=== PATIENT | male | born 1980 | race Caucasian/White ===

== ENCOUNTER 2020-05-01 19:03 | Emergency (ER) | payer OTHER, SELFPAY ==
--- NOTE | ~2020-05-01 | XR_ITS ---
XR ankle RT min 3V DATE: 05/01/2020 19:54 INDICATION: Fall. Pain and swelling of the lateral right ankle TECHNIQUE: 4 views COMPARISON: None FINDINGS: There is prominent anterolateral soft tissue swelling of the right ankle. No fracture or di slocation of the ankle or disruption of the ankle mortise is detected. IMPRESSION: Prominent anterolateral soft tissue swelling; no fracture or dislocation Reviewed, dictated and finalized at location A. IMPRESSION: Prominent anterolateral soft tissue swelling; no fracture or disloc ation
[2020-05-01 19:22] VITALS: BP 103/67; PULSE 114; RESP 19; TEMP 36.7; O2SAT 100
--- NOTE | 2020-05-01 19:54 | ED.GENADULT ---
HPI - General Adult General Chief complaint: Extremity Injury, Lower Stated complaint: R ankle pain Time Seen by Provider: 05/01/20 19:44 History of Present Illness HPI narrative: Patient is a 39 y/o male complaining or right ankle pain after he attempted to get up and fell around 1:00 PM. He state that his pain is sharp and rates it as 9/10. There is no pain radiation. Pain is worse with movement. He denies hitting head or passing out. He denies any neck pain, back pain, chest pain or abdominal pain. He admits that he drank last night. Related Data Home Medications Medication Instructions Recorded Confirmed No Home Medications 05/01/20 05/01/20 Allergies Allergy/AdvReac Type Severity Reaction Status Date / Time No Known Allergies Allergy Verified 05/01/20 19:43 Review of Systems Constitutional: Constitutional: Denies chills, Denies fever(s), Denies headache(s) and Denies weakness Eyes: Eyes: Denies blurry vision ENT: Denies headache(s) and Denies neck pain Cardiovascular: Cardiovascular: Denies chest pain and Denies dyspnea Respiratory: Respiratory: Denies cough and Denies dyspnea Gastrointestinal: Gastrointestinal: Denies abdominal pain, Denies diarrhea, Denies nausea and Denies vomiting Genitourinary: Genitourinary: Denies hematuria and Denies dysuria Musculoskeletal: Musculoskeletal: Denies back pain, Reports arthralgias (right ankle pain), Reports joint swelling (right ankle swelling) and Denies neck pain Neurologic: Denies headache(s) and Denies weakness PMFSH Family History Family History Other Diabetes mellitus Family history of alcoholism Family history of arthritis Family history of cardiovascular disease Hypertension Social History Social History Alcohol intake: current Gender identity (if verbalized by the patient): Male Exam Const: General: no acute distress and well developed Orientation/consciousness: oriented to person, oriented to place, oriented to time and patient oriented x3 HENMT: Head: normocephalic Ears: external ears normal General nose exam: Normal external nose present Eyes: General: appearance normal, both eyes and all related structures Conjunctivae: conjunctivae normal Neck: Neck: normal visual inspection and full ROM Chest: Chest palpation & inspection: normal inspection of the chest and no tenderness Resp: Effort & Inspection: normal respiratory effort Auscultation: clear to auscultation bilaterally Cardio: Rate: regular rate Rhythm: regular rhythm GI: GI Palp: No abdominal tenderness and Yes Soft to palpation Skin: General skin exam: normal color and turgor normal Neuro: General: oriented to person, oriented to place, oriented to time and patient oriented x3 Cognition (Neuro): normal cognition Extrem: General: normal to inspection and full ROM Right lower extremity: ankle Details: swelling (lateral malleolus) Details: laterally Psych: Appearance: grossly normal Mental Status: mental status grossly normal Affect: normal affect Course Vital Signs Vital signs: Vital Signs Temperature 36.7 C 05/01/20 19:22 Pulse Rate 114 H 05/01/20 19:22 Respiratory Rate 05/01/20 19:22 Blood Pressure 103/67 05/01/20 19:22 Pulse Oximetry 100 05/01/20 19:22 Temperature 36.7 C 05/01/20 19:22 Pulse Rate 114 H 05/01/20 19:22 Respiratory Rate 05/01/20 19:22 Blood Pressure 103/67 05/01/20 19:22 Pulse Oximetry 100 05/01/20 19:22 Medical Decision Making Vital Signs Vital Signs: Vital Signs Temperature 36.7 C 05/01/20 19:22 Pulse Rate 114 H 05/01/20 19:22 Respiratory Rate 05/01/20 19:22 Blood Pressure 103/67 05/01/20 19:22 Pulse Oximetry 100 05/01/20 19:22 Temperature 36.7 C 05/01/20 19:22 Pulse Rate 114 H 05/01/20 19:22 Respiratory Rate 05/01/20 19:22 Blood Pressure 103/6
--- NOTE | 2020-05-01 20:45 | PC.NURSE ---
Patient to nurses station reports that he is going to go out to make a phone call for a ride and that he will come back to room. Patient was told that he has not been discharged at this time and was re-educated that he was a fall risk. Patient reported that he understood and that he is still going to go out to make a phone call but will come back in.
--- NOTE | 2020-05-01 21:00 | PC.NURSE ---
Patient has not returned to his room. Intake nurse states that patient had left the ED waiting room and had not returned.
--- NOTE | 2020-05-01 21:20 | PC.NURSE ---
Patient has still not returned to his room. Patient has left the ED prior to being discharged.
== END 2020-05-01 21:20 | disposition home or self-care (01) ==
PROVIDERS: Emergency Provider Emergency Medicine
DX: S93.401A Sprain of unspecified ligament of right ankle, initial encounter (principal); W18.39XA Other fall on same level, initial encounter
CPT/HCPCS: 73610; 99283

== ENCOUNTER 2020-07-21 00:05 | Emergency (ER) | payer OTHER, SELFPAY ==
[2020-07-21] VITALS (15 sets, daily range): BP systolic 92–132; BP diastolic 71–96; PULSE 67–113; RESP 13–32; TEMP 36.4; O2SAT 90–100
--- NOTE | ~2020-07-21 | CT_ITS ---
EXAMINATION: CT brain wo con EXAM DATE: 07/21/2020 09:14 INDICATION: Left eye laceration. Syncope. TECHNIQUE: Spiral CT of the head was performed without contrast. Axial, coronal and sagittal images were reviewed. The dose-length product (DLP) for this examination was 605.33 mGy-cm. The exposure w as tailored according to patient size, and iterative reconstruction (ASIR) was used as additional dos e reduction technique. Comparison is made to prior examination from 10/12/2015. FINDINGS: There is left occipital shunt catheter. Low-lying cerebellar tonsils. There is no acute int raparenchymal hemorrhage. No evidence of intraparenchymal brain mass lesion. No evidence of acute i nfarction. There is no mass effect or midline shift. The ventricles are normal in size. There are no extra-axial collections. There are no acute calvarial fractures. The orbits are unremarkable. Le ft frontal laceration and contusion. The visualized sinuses and mastoid air cells are well aerated. There is no interval change. IMPRESSION: 1. No acute intracranial findings. 2. Left frontal scalp laceration. 3. Low-lying cerebellar tonsils. Reviewed, dictated and finalized at location B.
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
[2020-07-21] MEDS: LORazepam (*CRX) 1 MG TABLET PO (04:13)
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
[2020-07-21 04:39] LABS: Basophils Absolute Auto 0.1 K/mm3 (0.0-0.1); Basophils Percent Auto 0.9 % (0.2-1.2); Eosinophils Absolute Auto 0.1 K/mm3 (0-0.3); Eosinophils Percent Auto 1.2 % (0-4.4); Hematocrit 44.1 % (42.0-52.0); Hemoglobin 15.2 g/dL (14.0-18.0); Immature Granulocyte Absolute 0.04 K/mm3 (0.00-0.031); Immature Granulocyte Percent A 0.4 % (0-0.5); Lymphocytes Absolute Auto 2.31 K/mm3 (0.9-3.2); Mean Corpuscular HGB Conc 34.5 g/dl (32-36); Mean Corpuscular Hemoglobin 35.3 pg (26-34); Mean Corpuscular Volume 102.6 fl (80-100); Mean Platelet Volume 9.9 fl (7.4-10.4); Monocytes Percent Auto 10.3 % (2.6-8.5); Neutrophils Absolute Auto 6.1 K/mm3 (1.3-6.7); Neutrophils Percent Auto 63.2 % (45.5-73.1); Platelet Count Result 230 k/mm3 (150-375); Red Cell Distribution Width 13.2 % (11.5-14.5); White Blood Count 9.6 K/mm3 (4.5-10.0)
[2020-07-21 04:52] LABS: Ethanol 178 mg/dL (<10)
[2020-07-21 04:53] LABS: Alanine Aminotransferase 35 U/L (4-50); Albumin Level 4.9 g/dL (3.5-5.1); Alkaline Phosphatase 48 U/L (38-126); Anion Gap 15 mmol/L (8-16); Aspartate Amino Transferase 45 U/L (17-59); Bilirubin,Total 0.3 mg/dL (0.2-1.3); Blood Urea Nitrogen 10 mg/dL (9-20); Calcium 9.4 mg/dL (8.4-10.2); Carbon Dioxide 23 mmol/L (22-30); Chloride 103 mmol/L (98-107); Estimated CRCL calculation 114 ml/min; Estimated Glomerular Filt Rate > 60; Glucose 81 mg/dL (75-110); Potassium 3.2 mmol/L (3.4-5.0); Sodium 141 mmol/L (137-145)
[2020-07-21 05:10] LABS: Amphetamine Screen Urine Positive (Negative); Barbiturate Screen Urine Negative (Negative); Benzodiazepines Screen Urine Negative (Negative); Cannabinoid Screen Urine Positive (Negative); Cocaine Screen Urine Negative (Negative); Methadone Screen Urine Negative (Negative); Opiate Screen Urine Negative (Negative); Phencyclidine Screen Urine Negative (Negative)
--- NOTE | 2020-07-21 07:20 | PC.NURSE ---
pt ambulatory without difficulty to hallway 1 bed after room prepared to psych pt. sitter remains at bedside
--- NOTE | 2020-07-21 08:45 | PC.NURSE ---
Patient walked out of ED bathroom and had a syncopal episode, patient was assisted to sit on the floor at this time, then placed in the bed in room 14.
[2020-07-21] MEDS: SODIUM CHLORIDE 0.9% IV 1,000 ML 999 ML IV CONT (08:46)
[2020-07-21 10:02] LABS: Ethanol 21 mg/dL (<10)
--- NOTE | 2020-07-21 10:02 | PC.NURSE ---
[facility] Accepting patient at this time, Dr. Goldsmith accepting doctor. predictive maintenance technician Yesica [phone]
[2020-07-21 10:21] LABS: Glucose Point of Care 87 (65-105)
[2020-07-21] MEDS: ACETAMINOPHEN 500 MG TABLET 1000 MG PO (15:21)
--- NOTE | 2020-07-21 16:34 | PC.NURSE ---
Report called Yesica CLARK, Psychiatric
--- NOTE | 2020-07-21 18:07 | PC.NURSE ---
Patient going to bed 5330 at [facility], waiting on transport at this time.
[2020-07-21 20:04] LABS: SARS-CoV-2 RNA PCR Negative
== END 2020-07-21 19:13 ==
PROVIDERS: Emergency Medicine; Emergency Provider Emergency Medicine
DX: S01.81XA Laceration without foreign body of other part of head, initial encounter (principal); F41.9 Anxiety disorder, unspecified; Z20.828 Contact with and (suspected) exposure to other viral communicable diseases; X78.8XXA Intentional self-harm by other sharp object, initial encounter
CPT/HCPCS: 12013; 36415; 70450; 80053; 80307; 84443; 85025; 87635; 96360; 99284; 99285; A9270; C9803; J7030; U0003

== ENCOUNTER 2022-03-13 19:11 | Emergency (ER) | payer OTHER, SELFPAY ==
--- NOTE | ~2022-03-13 | XR_ITS ---
EXAMINATION: XR hand LT min 3V DATE: 03/13/2022 21:40 INDICATION: Postreduction third proximal interphalangeal joint dislocation. TECHNIQUE: Posteroanterior, oblique and lateral views of the left hand were obtained. COMPARISON: 03/13/2022 at 7:55 PM FINDINGS: Successful reduction of the previously dislocated left third proximal interphalangeal joint. Signific ant change in 5 mm proximal distraction of a volar plate avulsion fracture arising from the base of t he third middle phalanx. No other fractures identified. Joint spaces appear relatively preserved. IMPRESSION: 1. Successful reduction of previously dislocated left third proximal interphalangeal joint. 2. No significant change in 5 mm proximal distraction of a volar plate avulsion fracture arising from the base of the third middle phalanx. Reviewed, dictated and finalized at location A. IMPRESSION: 1. Successful reduction of previously dislocated left third proximal interphala ngeal joint. 2. No significant change in 5 mm proximal distraction of a volar plate avulsion fracture arising from the base of the third middle phalanx.
--- NOTE | ~2022-03-13 | XR_ITS ---
EXAMINATION: XR knee RT 3V DATE: 03/13/2022 22:31 INDICATION: Post foreign body removal at the right knee TECHNIQUE: AP, oblique and lateral views of the right knee were obtained. COMPARISON: 03/13/2022 at 8:02 PM FINDINGS: A pair of 2 mm radiopaque foreign bodies previously visualized in the soft tissues at the anterolater al aspect of the right knee are no longer visualized and have likely been debrided. There are a few r esidual tiny, less than 1 mm foreign bodies along with small lucencies consistent with reported skin abrasion. Old healed distal right femoral diaphyseal fracture with retrograde intramedullary jose f fixa tion. Fracture is healed in near-anatomic alignment. No acute fractures identified. Joint spaces appe ar normal on nonweightbearing imaging. No right knee joint effusion. IMPRESSION: 1. The 2 largest radiopaque foreign bodies at the anterolateral right knee have been debrided with a few residual minute, <1 mm densities. 2. Internally fixed old healed distal right femoral diaphyseal fracture. No acute osseous abnormality . Reviewed, dictated and finalized at location A. IMPRESSION: 1. The 2 largest radiopaque foreign bodies at the anterolateral right knee have been debrided with a few residual minute, <1 mm densities. 2. Internally fixed old healed distal right femoral diaphyseal fracture. No acu te osseous abnormality.
--- NOTE | ~2022-03-13 | XR_ITS ---
EXAM: XR hand LT 2V HISTORY: 3RD DIGIT finger deformity caught self with hand post fall COMPARISON: None available FINDINGS: Decreased mineralization. Ossific fragment projects along the anterior surface of the dist al aspect of the third proximal phalange. Medial displacement and angulation of the third middle phal nick. No other fracture or dislocation. No lytic or blastic lesion. Joint spaces maintained. No erosi on or periosteal change. Soft tissues within normal limits. IMPRESSION: Medial dislocation at the third proximal interphalangeal joint. Volar plate fracture involving the pr oximal middle third phalange. Reviewed, dictated and finalized at location K. IMPRESSION: Medial dislocation at the third proximal interphalangeal joint. Volar plate fra cture involving the proximal middle third phalange.
--- NOTE | ~2022-03-13 | XR_ITS ---
EXAM: XR knee RT 2V HISTORY: fall, scrapes to rt knee, femur surgery date unknown COMPARISON: X-ray femur 08/14/2012. FINDINGS: Partially visualized intramedullary jose f with distal interlocking screws, uncomplicated. De creased bone mineral density. No acute fracture or dislocation. Healed partially visualized femoral s haft fracture. Moderate medial joint space narrowing. Rounded 3 mm opacities project over the anterol ateral soft tissues on the right with adjacent subcutaneous gas. IMPRESSION: No acute osseous finding. 2 separate 3 mm radiopacities are present in the anterolateral soft tissues likely representing subcutaneous debris. Reviewed, dictated and finalized at location K. IMPRESSION: No acute osseous finding. 2 separate 3 mm radiopacities are present in the ante rolateral soft tissues likely representing subcutaneous debris.
[2022-03-13 19:20] VITALS: BP 130/89; PULSE 89; RESP 20; TEMP 36.8; O2SAT 98
--- NOTE | 2022-03-13 21:21 | ED.FALL ---
HPI - Fall General Chief Complaint: Fall Stated Complaint: Fall Time Seen by Provider: 03/13/22 19:34 History of Present Illness HPI Narrative: 41-year-old male presents to the emergency room for multiple injuries status post mechanical fall. Patient states that he was walking home from the store, wearing his brothers shoes which are multiple sizes too big for him. Patient states that he lost his balance and fell. Patient states he landed on his left hand causing obvious deformity to his left middle finger, and multiple abrasions to his right palm and right knee. Related Data Allergies Allergy/AdvReac Type Severity Reaction Status Date / Time No Known Allergies Allergy Verified 07/21/20 00:25 Review of Systems Review of Systems: CONSTITUTIONAL: Denies fever, chills, or sweats. EYES: Denies visual changes, redness, or discharge. ENT: Denies rhinorrhea, congestion, sore throat, or otalgia. CARDIOVASCULAR: Denies chest pain, palpitations, or edema. RESPIRATORY: Denies cough or dyspnea. GASTROINTESTINAL: Denies abdominal pain, nausea, vomiting, or diarrhea. GENITOURINARY: Denies dysuria or hematuria. SKIN: Reports abrasions to his right hand and right knee MUSCULOSKELETAL: Reports pain to his left middle finger NEUROLOGIC: Denies headache, numbness, dizziness, or weakness. PSYCHIATRIC: Denies anxiety or depression. PMFSH Family History Family History Other Diabetes mellitus Family history of alcoholism Family history of arthritis Family history of cardiovascular disease Hypertension Social History Social History Alcohol intake: current Gender identity (if verbalized by the patient): Male Sexual Orientation (if Verbalized by the Patient): Straight or Heterosexual Exam Narrative: GENERAL: Well-appearing, well-nourished, and in no acute distress. HEAD: Normocephalic, atraumatic. EYES: PERRLA and EOMI. CHEST: Clear to auscultation. No respiratory distress. No wheezes rales or rhonchi HEART: Regular rate and rhythm. No murmur heard. Normal peripheral pulses. EXTREMITIES: Left hand: Third finger DIP joint, neurovascular is intact distally SKIN: Abrasions to the right palm and right knee NEURO: No focal deficits. Alert and oriented x3. PSYCH: Normal mood and affect. Course Vital Signs Vital signs: Vital Signs Temperature 36.8 C 03/13/22 19:20 Pulse Rate 89 03/13/22 19:20 Respiratory Rate 20 03/13/22 19:20 Blood Pressure 130/89 03/13/22 19:20 Pulse Oximetry 98 03/13/22 19:20 Temperature 36.8 C 03/13/22 19:20 Pulse Rate 89 03/13/22 19:20 Respiratory Rate 20 03/13/22 19:20 Blood Pressure 130/89 03/13/22 19:20 Pulse Oximetry 98 03/13/22 19:20 Procedures Foreign Body Removal Foreign Body #1: Foreign Body Removal Date: 03/13/22 Foreign Body Removal Time: 22:17 Time Out Performed: yes Site: right and lower extremity (knee) Description of foreign body: rock Sedation/Analgesia: none Technique: removal with forceps and irrigation Confirmed by:: direct visualization Complications: none Post-procedure exam: awake, alert Neurovascular: normal distal pulse, distal motor function normal and no change from pre-procedure Laceration Laceration 1: Date: 03/13/22 Time: 22:35 Site: lower extremity Side (If applicable): right Size (cm): 2.5 Description: stellate Depth: simple, single layer Local Anesthetic: lidocaine 1% Amount of anesthesia used (mL): 5 Pre-repair: irrigated extensively and minor debridement ====== Skin Level ====== Skin layer closed with: nylon Size (cm): 3-0 Number of sutures: 5 Technique: simple, interrupted ====== Subcutaneous Layer ====== ====== Muscle Layer ====== ====== Tendon
[2022-03-13] MEDS: LIDOCAINE HCL 1% LOCAL INJ 20 ML VIAL INFILTRATE (21:22)
[2022-03-13] MEDS: LIDOCAINE HCL 2% VISC SOLN 15 ML UDC PO (21:23)
[2022-03-13] MEDS: TETANUS,DIPHTHERIA,AC PERTUSSIS ADULT (0.5 ML) BOOSTRIX IM (22:52)
[2022-03-13] MEDS: CEPHALEXIN 500 MG CAPSULE PO (22:53)
[2022-03-13 23:05] VITALS: BP 135/64; PULSE 86; RESP 18; O2SAT 98
== END 2022-03-13 23:05 | disposition home or self-care (01) ==
PROVIDERS: Emergency Provider Nurse Practitioner Family
DX: S62.613A Displaced fracture of proximal phalanx of left middle finger, initial encounter for closed fracture (principal); S81.021A Laceration with foreign body, right knee, initial encounter; S60.511A Abrasion of right hand, initial encounter; Z23 Encounter for immunization; W18.39XA Other fall on same level, initial encounter
CPT/HCPCS: 12001; 12031; 26725; 26742; 26770; 73120; 73130; 73560; 73562; 90471; 90715; 99285; A9270

== ENCOUNTER 2022-06-30 18:01 | Emergency (ER) | payer OTHER, SELFPAY ==
[2022-06-30] VITALS (23 sets, daily range): BP systolic 115–149; BP diastolic 76–99; PULSE 67–78; RESP 11–17; TEMP 36.7–36.8; O2SAT 94–100
--- NOTE | ~2022-06-30 | CT_ITS ---
EXAMINATION: CT cervical spine wo con DATE: 06/30/2022 18:38 INDICATION: Fall with head injury TECHNIQUE: Computed tomography (CT) of the cervical spine was performed without intravenous contrast. Automated exposure control and iterative reconstruction technique were employed. The dose-length pro duct was 188.85 mGy-cm. COMPARISON: None FINDINGS: 27 degree cervical levoscoliosis. Mild reversal of the normal lordosis in the upper cervical spine. C hronic mild anterior wedging at C3 and C4. No acute fracture. Mild right-sided predominant disc heigh t loss at C3-C4 through C6-C7. Uncovertebral osteoarthritis, severe on the right at C4-C5, moderate o n the right at C5-C6 and mild on the right at C3-C4 and C6-C7 and on the left at C4-C5 and C5-C6. The re is mild cervical facet osteoarthritis at multiple levels on the right as well as on the left at C7 -T1. There is moderate neural from stenosis on the right at C4-C5 with mild neural foraminal stenosis on the right at C5-C6 and on the left at C4-C5 and C5-C6. No significant central canal stenosis. Cer vical soft tissues are unremarkable. Visualized upper lung zones are clear. Left occipital shunt cath eters described on prior CT which courses inferiorly along the left neck to the anterior left chest a nd beyond the caudal-most field of imaging. There is an additional disconnected shunt catheter tubing along the anterior left upper chest wall. IMPRESSION: 1. 27 degrees cervical levoscoliosis with mild spondylosis. No acute osseous abnormality. Reviewed, dictated and finalized at location A. IMPRESSION: 1. 27 degrees cervical levoscoliosis with mild spondylosis. No acute osseous ab normality.
--- NOTE | ~2022-06-30 | CT_ITS ---
EXAMINATION: CT brain wo con DATE: 06/30/2022 18:35 INDICATION: Head injury post fall. TECHNIQUE: Computed tomography (CT) of the head was performed without intravenous contrast. Sagittal and coronal reconstructions were performed. The mA was adjusted according to patient size. Iterative reconstruction technique was employed. The dose-length product was 681.00 mGy-cm. COMPARISON: head CT dated 07/21/2020 FINDINGS: No fracture. No acute intracranial hemorrhage, acute infarction or abnormal extra axial fluid collect ion. There is asymmetry of the posterior fossa with the tentorium more superior on the left. Unchange d left occipital-approach shunt catheter that courses posterior to the left cerebellar hemisphere to terminate to the right of midline in the superior cerebellar cistern. . The lateral ventricles are no rmal in size. The third ventricle is small. Chronic partial effacement of the suprasellar cistern wit h shallow sella turcica and large sphenoid sinus. The prepontine cistern is enlarged. There is no dys vee of the corpus callosum. No intra-axial masses identified. There are small mucus retention cys ts in the right maxillary sinus. There is mild mucosal thickening in the ethmoid sinuses. The orbits and mastoid air cells are normal. IMPRESSION: 1. No fracture or acute intracranial process. 2. Unchanged small suprasellar cistern and small posterior fossa with unchanged left occipital approa ch shunt catheter. No hydrocephalus. Reviewed, dictated and finalized at location A. IMPRESSION: 1. No fracture or acute intracranial process. 2. Unchanged small suprasellar cistern and small posterior fossa with unchanged left occipital approach shunt catheter. No hydrocephalus.
--- NOTE | ~2022-06-30 | CT_ITS ---
EXAMINATION: CT knee RT wo con DATE: 06/30/2022 18:46 INDICATION: Right knee deformity post fall TECHNIQUE: High resolution computed tomography (CT) of the right knee was performed without intraveno us contrast. Additional sagittal and coronal reconstructions were performed. Automated exposure contr ol and iterative reconstruction technique were employed. The dose-length product was 686.44 mGy-cm. COMPARISON: Right knee radiographs dated 03/13/2022 FINDINGS: Old healed distal right femoral diaphyseal fracture which is healed with approximately 7 degrees ante rior angulation. This fracture is fixed with a retrograde intramedullary jose f with a pair of interlock ing screws extending transversely across the metaphysis. There is an acute comminuted fractures exten ding obliquely across the proximal metadiaphyseal region of the tibia with at least 4 small butterfly fragments. There is 12 degree lateral angulation. There is also a comminuted fractures at the head a nd neck of the proximal fibula with similar degree of lateral angulation. There is soft tissue swelli ng surrounding fracture. Small hematoma also containing some fat located in the soft tissues along th e medial margin of the anterior tibial tuberosity. There is also surrounding gas scattered throughout the soft tissues with a few foci of intramedullary gas in the proximal tibia which suggests an open/ compound fracture. Correlate with clinical history for skin laceration. Normal alignment at the knee joint with mild nonuniform joint space narrowing in all 3 compartments consistent with mild osteoarth ritis. No knee joint effusion. IMPRESSION: 1. Comminuted extra-articular fractures of the proximal right tibia and fibula with 12 degrees latera l angulation. Some associated soft tissue and intramedullary gas suggests possibility of an open/comp ound fracture. Correlate clinically for associated laceration. Reviewed, dictated and finalized at location A. IMPRESSION: 1. Comminuted extra-articular fractures of the proximal right tibia and fibula with 12 degrees lateral angulation. Some associated soft tissue and intramedull atilio gas suggests possibility of an open/compound fracture. Correlate clinically for associated laceration.
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
[2022-06-30 18:38] LABS: Basophils Absolute Auto 0.1 K/mm3 (0.0-0.1); Basophils Percent Auto 1.5 % (0.2-1.2); Eosinophils Percent Auto 0.4 % (0-4.4); Hemoglobin 14.6 g/dL (14.0-18.0); Immature Granulocyte Absolute 0.05 K/mm3 (0.00-0.031); Immature Granulocyte Percent A 0.7 % (0-0.5); Lymphocytes Absolute Auto 1.97 K/mm3 (0.9-3.2); Lymphocytes Percent Auto 28.8 % (18.3-44.2); Mean Corpuscular HGB Conc 33.2 g/dl (32-36); Mean Corpuscular Hemoglobin 34.4 pg (26-34); Mean Corpuscular Volume 103.8 fl (80-100); Mean Platelet Volume 10.3 fl (7.4-10.4); Monocytes Absolute Auto 0.8 K/mm3 (0.1-0.6); Monocytes Percent Auto 11.1 % (2.6-8.5); Neutrophils Absolute Auto 3.9 K/mm3 (1.3-6.7); Neutrophils Percent Auto 57.5 % (45.5-73.1); Platelet Count Result 216 k/mm3 (150-375); Red Blood Count 4.24 M/mm3 (4.6-6.20); Red Cell Distribution Width 14.2 % (11.5-14.5); White Blood Count 6.9 K/mm3 (4.5-10.0)
[2022-06-30 18:47] LABS: INR 0.9; Prothrombin Time 11.9 Seconds (11.1-14.7)
[2022-06-30 18:48] LABS: Alanine Aminotransferase 55 U/L (6-50); Albumin Level 4.5 g/dL (3.5-5.1); Alkaline Phosphatase 54 U/L (38-126); Anion Gap 16 mmol/L (8-16); Aspartate Amino Transferase 68 U/L (17-59); Bilirubin,Total 0.2 mg/dL (0.2-1.3); Blood Urea Nitrogen 3 mg/dL (9-20); Carbon Dioxide 22 mmol/L (22-30); Chloride 104 mmol/L (98-107); Estimated Glomerular Filt Rate > 60; Glucose 117 mg/dL (65-110); Partial Thromboplastin Time 20.5 SECONDS (22.3-36.8); Potassium 3.2 mmol/L (3.4-5.0); Sodium 142 mmol/L (137-145)
[2022-06-30 18:52] LABS: Ethanol 299 mg/dL (<10)
[2022-06-30] MEDS: fentaNYL CITRATE INJ (*CRX) 100 MCG/2 ML VIAL 50 MCG IV PUSH (19:00)
[2022-06-30] MEDS: SODIUM CHLORIDE 0.9% IV 1,000 ML 999 ML IV CONT (20:20)
== END 2022-06-30 21:15 | disposition short-term general hospital (02) ==
PROVIDERS: Emergency Provider Emergency Medicine
DX: S82.191B Other fracture of upper end of right tibia, initial encounter for open fracture type I or II (principal); S82.831B Other fracture of upper and lower end of right fibula, initial encounter for open fracture type I or II; F10.120 Alcohol abuse with intoxication, uncomplicated; Y90.8 Blood alcohol level of 240 mg/100 ml or more; W10.2XXA Fall (on)(from) incline, initial encounter
CPT/HCPCS: 36415; 70450; 72125; 73700; 80053; 80307; 85025; 85610; 85730; 86850; 86900; 86901; 96365; 96367; 96375; 99285; J0131; J0690; J3010; J7030

== ENCOUNTER 2022-08-03 18:03 | Emergency (ER) | payer OTHER, SELFPAY ==
[2022-08-03 18:44] VITALS: BP 125/86; PULSE 110; RESP 16; TEMP 37.1; O2SAT 100
[2022-08-03 18:58] LABS: Basophils Absolute Auto 0.1 K/mm3 (0.0-0.1); Basophils Percent Auto 0.9 % (0.2-1.2); Eosinophils Absolute Auto 0.1 K/mm3 (0-0.3); Eosinophils Percent Auto 0.9 % (0-4.4); Hematocrit 42.1 % (42.0-52.0); Hemoglobin 13.6 g/dL (14.0-18.0); Immature Granulocyte Absolute 0.06 K/mm3 (0.00-0.031); Immature Granulocyte Percent A 0.6 % (0-0.5); Lymphocytes Absolute Auto 1.62 K/mm3 (0.9-3.2); Lymphocytes Percent Auto 15.4 % (18.3-44.2); Mean Corpuscular HGB Conc 32.3 g/dl (32-36); Mean Corpuscular Hemoglobin 33.3 pg (26-34); Mean Corpuscular Volume 103.2 fl (80-100); Mean Platelet Volume 9.6 fl (7.4-10.4); Monocytes Absolute Auto 1.2 K/mm3 (0.1-0.6); Monocytes Percent Auto 11.5 % (2.6-8.5); Neutrophils Absolute Auto 7.5 K/mm3 (1.3-6.7); Neutrophils Percent Auto 70.7 % (45.5-73.1); Platelet Count Result 263 k/mm3 (150-375); Red Blood Count 4.08 M/mm3 (4.6-6.20); Red Cell Distribution Width 14.5 % (11.5-14.5); White Blood Count 10.5 K/mm3 (4.5-10.0)
[2022-08-03 19:10] LABS: Alanine Aminotransferase 16 U/L (6-50); Alkaline Phosphatase 68 U/L (38-126); Anion Gap 20 mmol/L (8-16); Aspartate Amino Transferase 24 U/L (17-59); Blood Urea Nitrogen 11 mg/dL (9-20); Calcium 9.9 mg/dL (8.4-10.2); Carbon Dioxide 22 mmol/L (22-30); Chloride 96 mmol/L (98-107); Estimated Glomerular Filt Rate > 60; Glucose 80 mg/dL (65-110); Potassium 3.9 mmol/L (3.4-5.0); Sodium 138 mmol/L (137-145)
[2022-08-03 19:14] LABS: Ethanol < 10 mg/dL (<10)
[2022-08-03 22:23] VITALS: BP 154/97; PULSE 92; RESP 18; O2SAT 100
--- NOTE | 2022-08-03 22:52 | PC.NURSE ---
Patient having flight of ideas. patient states he has not had any alcohol or any meth in 4 days. patient has been talking to himself and the curtain in the room. patient states he is unable to urinate. he states he never is able to pee on his own.
--- NOTE | 2022-08-03 23:32 | ED.PSYCH ---
HPI - Psych General Chief Complaint: Psychiatric Symptoms <KRANTHI Mercado Last Filed: 08/05/22 17:02> Stated Complaint: took meth four days ago. seeing and hearing things <KRANTHI Mercado Last Filed: 08/05/22 17:02> Time Seen by Provider: 08/03/22 22:16 <KRANTHI eMrcado Last Filed: 08/05/22 17:02> Source: patient, RN notes reviewed and old records reviewed <KRANTHI Mercado Last Filed: 08/05/22 17:02> Mode of arrival: ambulatory <KRANTHI Mercado Filed: 08/05/22 17:02> Limitations: clinical condition <KRANTHI Mercado Filed: 08/05/22 17:02> History of Present Illness HPI Narrative: Patient is a 41 y/o male who presents to the ED with c/o hallucinations. Per triage note, patient was brought to the ED by his brother after he was found talking to a door. Patient has flight of ideas and does appear to be responding to internal stimuli upon my evaluation. He admits to methamphetamine use last night. He states he slept normally afterwards. He denies any other drug use last night, but does admit he likes to drink. Patient denies any SI or HI currently. He does not really know why he is here. Denies any pain currently. Patient does report a history of several previous psychiatric hospitalizations. <KRANTHI Mercado Last Filed: 08/05/22 17:02> Related Data Allergies/Adverse Reactions: Allergies Allergy/AdvReac Type Severity Reaction Status Date / Time No Known Allergies Allergy Verified 07/21/20 00:25 <KRANTHI Mercado Last Filed: 08/05/22 17:02> Review of Systems Review of Systems: CONSTITUTIONAL: Denies fever, chills, or sweats. CARDIOVASCULAR: Denies chest pain. RESPIRATORY: Denies dyspnea. GASTROINTESTINAL: Denies abdominal pain, nausea, vomiting, or diarrhea. MUSCULOSKELETAL: Denies back pain, joint pain, or myalgia. NEUROLOGIC: Denies weakness. PSYCHIATRIC: Reports auditory/visual hallucinations. Denies SI, HI, anxiety or depression. 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[employer] ENGINEER shunt <Юлия Blake PA-C - Last Filed: 08/05/22 17:02> Family History Family History: Family History Other Diabetes mellitus Family history of alcoholism Family history of arthritis Family history of cardiovascular disease Hypertension <Юлия Blake PA-C - Last Filed: 08/05/22 17:02> Social History Social History: Social History Alcohol intake: current Substance use type: methamphetamine Gender identity (if verbalized by the patient): Male Sexual Orientation (if Verbalized by the Patient): Straight or Heterosexual <Юлия Blake PA-C - Last Filed: 08/05/22 17:02> Exam Narrative: GENERAL: Mildly disheveled appearing, thin, non-toxic, in no acute distress. HEAD: Normocephalic, atraumatic. EYES: PERRL/EOMI, conjunctivae clear bilaterally. NECK: Supple. No adenopathy, no masses. RESPIRATORY: Airway patent, respirations nonlabored. Clear to auscultation bilaterally, no rales, rhonchi, wheezing. CARDIOVASCULAR: Regular rate and rhythm without murmurs, rubs, or gallops. Peripheral pulses 2+ and equal bilaterally. MUSCULOSKELETAL: Moves all extremities. Strength/ROM intact without gross deformities. SKIN: Warm, dry, normal color. No rashes. NEURO: A&O X3. Speech cl
[2022-08-03] MEDS: LORazepam INJ (*CRX) 2 MG/ML VIAL 0.5 MG IM (23:50)
[2022-08-04 00:16] LABS: Acetaminophen < 10 ug/mL (10-30); Salicylate < 1.0 mg/dL (2-20)
[2022-08-04 02:12] LABS: Add Urine Microscopic? YES; Appearance Urine Clear (Clear); Bacteria Urine Trace /hpf; Bilirubin Urine 2+ (Negative); Blood Urine Negative (Negative); Color Urine Yellow (Yellow); Glucose Urine UA Negative (Negative); Ketones Urine 2+ mg/dL (Negative); Leukocyte Esterase Ur Negative LEU/UL (Negative); Mucus Urine Moderate /lpf; Nitrate Urine Negative (Negative); Protein Urine Trace mg/dL (Negative); RBC Urine 0-2 /hpf (0-2); Specific Grav Ur >= 1.030 (1.001-1.035); Urobilinogen Urine 0.2 mg/dL (<2.0); WBC Urine 0-3 /hpf; pH Urine 5.5 (5.0-9.0)
[2022-08-04 02:28] LABS: Barbiturate Screen Urine Negative (Negative); Benzodiazepines Screen Urine Positive (Negative)
[2022-08-04 02:45] LABS: Cannabinoid Screen Urine Positive (Negative); Cocaine Screen Urine Positive (Negative); Methadone Screen Urine Negative (Negative); Opiate Screen Urine Negative (Negative); Phencyclidine Screen Urine Negative (Negative)
[2022-08-04 03:03] LABS: Amphetamine Screen Urine Positive (Negative)
--- NOTE | 2022-08-04 04:08 | PC.NURSE ---
Pt sitting room having conversations with voices here.
--- NOTE | 2022-08-04 05:04 | PC.NURSE ---
Crisis at bedside at this time.
--- NOTE | 2022-08-04 07:08 | PC.NURSE ---
Report given to AMBER Baldwin.
--- NOTE | 2022-08-04 07:08 | PC.NURSE ---
Assumed care of pt, pt is talking excessively and attempting to leave room, pt re directs to room. Crisis is here to attempt seeking placement. Breakfast tray ordered at this time.
[2022-08-04 07:11] VITALS: BP 133/85; PULSE 90; RESP 15; TEMP 36.6; O2SAT 94
--- NOTE | 2022-08-04 07:28 | PC.NURSE ---
Faxed report/chart to Britney at [facility] per request, . Pt taken to room 15, bedside report given to Melvin CLARK.
--- NOTE | 2022-08-04 08:03 | ECG_ITS ---
Measurements Intervals [place] Rate: 101 P: 68 [place]: 131 QRS: 9 QRSD: 89 T: 76 QT: 359 QTc: 467 Interpretive Statements SINUS TACHYCARDIA POSSIBLE RIGHT ATRIAL ENLARGEMENT [0.25mV P-WAVE] LEFT ATRIAL ENLARGEMENT [-0.15mV P-WAVE IN V1/V2] INCOMPLETE RIGHT BUNDLE BRANCH BLOCK NO PREVIOUS ECG AVAILABLE FOR COMPARISON Electronically Signed On 08-04-2022 17:20:55 CDT by Markie Figueroa M.D.
[2022-08-04 08:04] LABS: SARS-CoV-2 RNA PCR Negative
--- NOTE | 2022-08-04 08:22 | PC.NURSE ---
Spoke with Britney from [facility] who states the pt will be accepted and she will call back with room number and accepting physician.
== END 2022-08-04 10:47 ==
PROVIDERS: Emergency Medicine; Physician Assistant; Emergency Provider Emergency Medicine
DX: F29 Unspecified psychosis not due to a substance or known physiological condition (principal); F19.10 Other psychoactive substance abuse, uncomplicated; Z20.822 Contact with and (suspected) exposure to COVID-19; G91.9 Hydrocephalus, unspecified; R00.0 Tachycardia, unspecified; I45.10 Unspecified right bundle-branch block; R94.31 Abnormal electrocardiogram [ECG] [EKG]
CPT/HCPCS: 36415; 51701; 80053; 80307; 81001; 84443; 85025; 93005; 96372; 99285; C9803; J2060; U0003; U0005

== ENCOUNTER 2025-07-22 07:53 | Emergency (ER) | payer OTHER, SELFPAY ==
[2025-07-22] VITALS (8 sets, daily range): BP systolic 95–129; BP diastolic 68–98; PULSE 78–105; RESP 17–20; TEMP 36.1; O2SAT 100
--- NOTE | ~2025-07-22 | XR_ITS ---
EXAMINATION: XR chest 1V DATE: 07/22/2025 08:50 INDICATION: Chest pain. Altered mental status. TECHNIQUE: frontal view of the chest was obtained. COMPARISON: Chest radiograph dated 04/10/2019 FINDINGS: The lungs remain clear with no focal airspace opacities, pulmonary edema, pleural effusion or pneumothorax. The cardiomediastinal silhouette is normal. Consider couple ventricular peritoneal shunt catheters projecting across the left chest extending to the left upper quadrant of the abdomen. One of the catheters extends contiguously along the left neck and beyond the cephalad margin of the [id number]. The second is discontinuous with proximal end projecting over the left base of the neck. IMPRESSION: 1. No acute cardiopulmonary disease. Reviewed, dictated and finalized at location A.
--- NOTE | ~2025-07-22 | XR_ITS ---
EXAMINATION: XR shunt series DATE: 07/22/2025 08:50 INDICATION: Hydrocephalus TECHNIQUE: AP and lateral views of the skull and AP views of the chest, the abdomen and of the pelvis were obtained. COMPARISON: Chest radiograph dated 04/10/2019 FINDINGS: There is a shunt catheter with proximal tip projecting over the posterior left occipital region, not in the expected location of and ventricle which extends to a valve overlying the left temporal occipital region. The catheter subsequently courses caudally along the left side of the neck, across the anterior left chest to the left epigastric region where there are multiple small loops of the catheter. The catheter then courses laterally below the left hemidiaphragm, caudally along the left side of the abdomen with distal tip in the left lower quadrant. There are no evident kinks or discontinuities along the course of the catheter. There is a second discontinuous shunt catheter with the proximal end projecting over the left base of the neck and with distal tip in the central lower abdomen. Lungs are clear with no focal airspace opacities, pulmonary edema, pleural effusion or pneumothorax. Heart size is normal. Normal bowel gas pattern. Proximal tip of an incompletely visualized retrograde intramedullary jose f is seen in the subtrochanteric proximal right femur. IMPRESSION: 1. Intact appearing shunt catheter extending from the posterior left occipital region to the distal tip in the left lower quadrant of the abdomen. Reviewed, dictated and finalized at location A.
--- NOTE | ~2025-07-22 | CT_ITS ---
EXAMINATION: CT chest abdomen pelvis w con DATE: 07/22/2025 11:24 INDICATION: Left-sided chest and low back pain TECHNIQUE: Computed tomography (CT) of the chest, abdomen, and pelvis was performed with 100 mL Omnipaque-350 intravenous contrast. Automated exposure control and iterative reconstruction technique were employed. The dose-length product was 300.03 mGy-cm. COMPARISON: None FINDINGS: CHEST CT: No suspicious pulmonary nodules, pneumonia, pulmonary edema or other pulmonary infiltrates. No pleural effusion. Heart size is normal. No pericardial effusion. Thoracic aorta is normal in caliber with no dissection. No pathologically enlarged thoracic lymphadenopathy. Mild thoracic spondylosis with multiple Schmorl's nodes along the mid to lower thoracic spine. Chronic T11 compression fracture with 40% anterior vertebral body height loss which has progressed since lumbar spine radiographs dated 04/10/2019. ABDOMEN/PELVIS CT: Liver, gallbladder, spleen, bilateral adrenal glands and kidneys are normal. There is stranding surrounding the tail of the pancreas consistent with acute interstitial pancreatitis with multiple small dystrophic calcification is at the head and tail the pancreas consistent with sequela of previous chronic pancreatitis. Bowels including the appendix are normal. Bladder is normal. Small amount of free fluid in the deep pelvis. No abscess or free intraperitoneal gas. Shunt catheter extending from the visualized inferior neck across the anterior chest wall extending to the abdomen with distal tip positioned in the central pelvis. There is a second discontinuous chronic shunt catheter with proximal end positioned at the inferior left neck also extending along the anterior left chest wall into the abdomen with distal tip anteriorly in the pelvis. No pathologically enlarged abdominal or pelvic lymphadenopathy. Right supra- acetabular bone island. Mild to moderate lumbar spondylosis. IMPRESSION: 1. No acute cardiopulmonary disease. 2. Acute on chronic interstitial pancreatitis. Reviewed, dictated and finalized at location A.
--- NOTE | ~2025-07-22 | CT_ITS ---
EXAMINATION: CT brain wo con DATE: 07/22/2025 08:32 INDICATION: Altered mental status. TECHNIQUE: Computed tomography (CT) of the head was performed without intravenous contrast. The mA was adjusted according to patient size. Iterative reconstruction technique was employed. The dose-length product was 605.33 mGy-cm. COMPARISON: Head CT 06/30/2022 FINDINGS: There is no intracranial hemorrhage, acute infarction, or abnormal intracranial mass lesion. The suprasellar cistern is small. There is tentorial inversion, left worse than right. There is leftward shift of the fourth ventricle. The ventricles are normal in size without change. There is a shunt catheter in the posterior fossa. The paranasal sinuses are clear. The orbits are normal. The mastoid air cells are normal. IMPRESSION: 1. Normal-sized ventricles with shunt catheter unchanged in position. Reviewed, dictated and finalized at location E.
[2025-07-22] MEDS: diazePAM INJ (*CRX) 10 MG/2 ML SYRINGE 5 MG IV PUSH (07:59)
--- NOTE | 2025-07-22 08:01 | ECG_ITS ---
Test Date: 2025-07-22 08:12:11 Measurements Intervals [place] Rate: 82 P: 30 NH: 112 QRS: -24 QRSD: 89 T: 55 QT: 425 QTc: 497 Interpretive Statements SINUS RHYTHM BORDERLINE LEFT AXIS DEVIATION [QRS AXIS < -20] PROLONGED QT INTERVAL BORDERLINE ECG No previous ECG available for comparison Electronically Signed On 07-22-2025 12:32:41 CDT by Drake Boo M.D.
--- NOTE | 2025-07-22 08:01 | ED_ITS ---
HPI - General Adult General Chief complaint: Anxiety Stated complaint: tingling to extremities History of Present Illness HPI narrative: This is a 44-year-old male with history of hydrocephalus and anxiety with panic attacks presenting for anxiety. Patient said that he spent all last night drinking and smoking pot. He then blacked out and woke up this morning feeling incredibly anxious. He is having carpopedal spasm. He has pain all over his body but worse on the left. Patient does not recall any trauma, denies headaches fevers chest pain difficulty breathing abdominal pain nausea vomiting or diarrhea. 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 He appears very anxious. He is having trouble giving a concise history. Head: atraumatic. EYES: EOMI, NOSE: Atraumatic NECK: Trachea midline RESPIRATORY: No increased rate of breathing clear to auscultation CARDIOVASCULAR: Tachycardic, no peripheral edema ABDOMINAL: Non-distended soft nontender MUSCULOSKELETAl: No obvious deformities head to toe trauma exam performed. Patient is complaining tenderness over the left lateral thigh without any bruising/ecchymosis/masses. All compartments are soft. NEURO: Alert. Cranial nerves 2-12 grossly intact. Sensation light touch, motor function cerebellar function intact for 4 extremities. Gait exam - antalgic gait. SKIN:: Warm, dry. Normal color PSYCHIATRIC: Anxious appearing Course Vital Signs Vital signs: Vital Signs Temperature 97.0 F L 09/23/25 07:57 Pulse Rate 105 H 07/22/25 07:57 Respiratory Rate 20 07/22/25 07:57 Blood Pressure 129/98 H 07/22/25 07:57 Pulse Oximetry 100 07/22/25 07:57 Temperature 97.0 F L 07/22/25 07:57 Pulse Rate 82 07/22/25 10:46 Respiratory Rate 20 07/22/25 10:46 Blood Pressure 110/87 07/22/25 10:46 Pulse Oximetry 100 07/22/25 10:46 Medical Decision Making MDM Narrative Medical decision making narrative: -Course: 44-year-old male with hydrocephalus and anxiety presenting after a night of drinking and using drugs with a symptoms consistent with panic attack including overwhelming dread, carpopedal spasm. He also has left-sided radicular pain down his leg. Leg pain may represent a radicular pain due to a Monday night palsy versus MSK pain from passing out on the ground. Patient's physical exam is unremarkable in all compartments are soft. CPK is normal. He is slightly tachycardic. He is very anxious. His normal logic exam is normal. Patient was given 5 mg of IV Valium to facilitate completing his workup. CT brain and shunt series did not reveal any acute findings. CT chest abdomen pelvis was negative for occult trauma. Urine drug screen positive for cocaine and cannabinoids. Venous blood gas showed a respiratory alkalosis consistent with anxiety. Patient was monitored for several hours in his condition has continued to improved. He was able to ambulate in the emergency department despite some muscle stiffness. Patient will be discharged home. -DDX includes but is not limited to: Anxiety attack, alcohol intoxication, polysubstance use disorder, hydrocephalus Vital Signs Vital Signs: Vital Signs Temperature 97.0 F L 07/22/25 07:57 Pulse Rate 105 H 07/22/25 07:57 Respiratory Rate 20 07/22/25 07:57 Blood Pressure 129/98 H 07/22/25 07:57 Pulse Oximetry 100 07/22/25 07:57 Temperature 97.0 F L 07/22/25 07:57 Pulse Rate 82 07/22/25 10:46 Respiratory Rate 20 07/22/25 10:46 Blood Pressure 110/87 07/22/25 10:46 Pulse Oximetry 100 07/22/25 10:46 Lab Data 09/23/25 08:15 07/22/25 08:16 Labs: Lab Results 07/22/25 07/22/25 07/22/25 Range/Units 08:10 08:15 08:16 WBC 10.7 H (4.5-10.0) K/mm3 RBC 4.60 (4.6-6.20) M/mm3 Hgb 15.7 (14.0-18.0) g/dL Hct 46.0 (42.0-52.0) % MCV 100.0 (80-100) fl MCH 34.1 H (26-34) pg MCHC 34.1 (32-36) g/dl RDW 14.5 (11.5-14.5) % Plt Count 453 H D (150-375) k/mm3 MPV 9.0 (7.4-10.4) fl Immature Gran % (Auto) 0.5 (0-0.5) % Neut % (Auto) 71.8 (45.5-73.1) % Lymph % (Auto) 15.1 L (18.3-44.2) % [place] % (Auto) 11.3 H (2.6-8.5) % Eos % (Auto) 0.2 (0-4.4) % Baso % (Auto) 1.1 (0.2-1.2) % Lymph # (Auto) 1.62 (0.9-3.2) K/mm3 [place] # (Auto) 1.2 H (0.1-0.6) K/mm3 Eos # (Auto) 0.0 (0-0.3) K/mm3 Baso # (Auto) 0.1 (0.0-0.1) K/mm3 Abs Immat Gran (auto) 0.05 H (0.00-0.031) K/mm3 Absolute Neuts (auto) 7.7 H (1.3-6.7) K/mm3 Absolute Nucleated RBC 0.000 (0.0-0.012) K/mm3 Nucleated RBC % 0.0 (0.0-0.2) % PT 12.5 (11.1-14.7) Seconds INR 0.9 APTT 25.5 (22.3-36.8) Seconds Sodium 134 L (137-145) mmol/L Potassium 3.4 (3.4-5.0) mmol/L Chloride 96 L (98-107) mmol/L Carbon Dioxide 22 (22-30) mmol/L Anion Gap 16 H (4-12) mmol/L BUN 9 (9-20) mg/dL Creatinine 0.66 L (0.7-1.3) mg/dL Estim Creat Clear Calc 101 ml/min Estimated GFR > 60 (59 - ) Glucose 99 (65-110) mg/dL POC Capillary Glucose 106 H (65-105) mg/dl Calcium 9.0 (8.4-10.2) mg/dL Phosphorus 4.0 (2.5-4.5) mg/dL Magnesium 1.6 (1.6-2.3) mg/dL Total Bilirubin 0.6 (0.2-1.3) mg/dL AST 36 (17-59) U/L ALT 33 (6-50) U/L Alkaline Phosphatase 67 (38-126) U/L Total Creatine Kinase 36 L (55-170) U/L Total Protein 7.5 (6.3-8.2) g/dL Albumin 4.3 (3.5-5.1) g/dL Lipase 277 (23-300) U/L TSH (Reflex) 2.350 (0.465-4.68) uIU/mL Urine Color (Yellow) Urine Appearance (Clear) Urine pH (5.0-9.0) Ur Specific [place] (1.001-1.035) Urine Protein (Negative) mg/dL Urine Glucose (UA) (Negative) mg/dL Urine Ketones (Negative) mg/dL Ur Blood (Man) (Negative) Urine Nitrate (Negative) Urine Bilirubin (Negative) Urine Urobilinogen (<2.0) mg/dL Leukocyte Esterase Rfl (Negative) LESLYE/UL Urine RBC (0-2) /hpf Urine WBC (0-3) /hpf Ur Squamous Epith Cells (Few) /hpf Urine Bacteria /hpf Urine Casts Urine Opiates Screen (Negative) Urine Methadone Screen (Negative) Acetaminophen < 10 L (10-30) ug/mL Ur Barbiturates Screen (Negative) Ur Phencyclidine Scrn (Negative) Ur Amphetamine Screen (Negative) U Benzodiazepines Scrn (Negative) Urine Cocaine Screen (Negative) U Cannabinoids Screen (Negative) Ethyl Alcohol < 10 (<10) mg/dL 07/22/25 Range/Units 09:25 WBC (4.5-10.0) K/mm3 RBC (4.6-6.20) M/mm3 Hgb (14.0-18.0) g/dL Hct (42.0-52.0) % MCV (80-100) fl MCH (26-34) pg MCHC (32-36) g/dl RDW (11.5-14.5) % Plt Count (150-375) k/mm3 MPV (7.4-10.4) fl Immature Gran % (Auto) (0-0.5) % Neut % (Auto) (45.5-73.1) % Lymph % (Auto) (18.3-44.2) % [place] % (Auto) (2.6-8.5) % Eos % (Auto) (0-4.4) % Baso % (Auto) (0.2-1.2) % Lymph # (Auto) (0.9-3.2) K/mm3 [place] # (Auto) (0.1-0.6) K/mm3 Eos # (Auto) (0-0.3) K/mm3 Baso # (Auto) (0.0-0.1) K/mm3 Abs Immat Gran (auto) (0.00-0.031) K/mm3 Absolute Neuts (auto) (1.3-6.7) K/mm3 Absolute Nucleated RBC (0.0-0.012) K/mm3 Nucleated RBC % (0.0-0.2) % PT (11.1-14.7) Seconds INR APTT (22.3-36.8) Seconds Sodium (137-145) mmol/L Potassium (3.4-5.0) mmol/L Chloride (98-107) mmol/L Carbon Dioxide (22-30) mmol/L Anion Gap (4-12) mmol/L BUN (9-20) mg/dL Creatinine (0.7-1.3) mg/dL Estim Creat Clear Calc ml/min Estimated GFR (59 - ) Glucose (65-110) mg/dL POC Capillary Glucose (65-105) mg/dl Calcium (8.4-10.2) mg/dL Phosphorus (2.5-4.5) mg/dL Magnesium (1.6-2.3) mg/dL Total Bilirubin (0.2-1.3) mg/dL AST (17-59) U/L ALT (6-50) U/L Alkaline Phosphatase (38-126) U/L Total Creatine Kinase (55-170) U/L Total Protein (6.3-8.2) g/dL Albumin (3.5-5.1) g/dL Lipase (23-300) U/L TSH (Reflex) (0.465-4.68) uIU/mL Urine Color Yellow (Yellow) Urine Appearance Clear (Clear) Urine pH 7.0 (5.0-9.0) Ur Specific [place] 1.030 (1.001-1.035) Urine Protein 1+ H (Negative) mg/dL Urine Glucose (UA) Negative (Negative) mg/dL Urine Ketones Negative (Negative) mg/dL Ur Blood (Man) Negative (Negative) Urine Nitrate Negative (Negative) Urine Bilirubin Negative (Negative) Urine Urobilinogen 1.0 (<2.0) mg/dL Leukocyte Esterase Rfl Negative (Negative) LESLYE/UL Urine RBC 0-2 (0-2) /hpf Urine WBC 0-5 (0-3) /hpf Ur Squamous Epith Cells None seen (Few) /hpf Urine Bacteria None seen /hpf Urine Casts 0-2 Urine Opiates Screen Negative (Negative) Urine Methadone Screen Negative (Negative) Acetaminophen (10-30) ug/mL Ur Barbiturates Screen Negative (Negative) Ur Phencyclidine Scrn Negative (Negative) Ur Amphetamine Screen Negative (Negative) U Benzodiazepines Scrn Negative (Negative) Urine Cocaine Screen Positive A (Negative) U Cannabinoids Screen Positive A (Negative) Ethyl Alcohol (<10) mg/dL ABG Data ABG results: 07/22/25 08:14 VBG pH 7.554 H* VBG pCO2 22.1 L* VBG pO2 28.1 L VBG HCO3 19.1 L O2 Delivery Device Room air O2 Liters/Min 0.0 FiO2 21 Discharge Plan Discharge Clinical Impression: Anxiety, Cocaine abuse, Marijuana abuse, Carpopedal spasm, Nerve palsy, Monday night, Left lumbar radiculopathy Patient Disposition: Home Condition: Stable Instructions: Antibiotic Form, Anxiety (ED) Additional Instructions: You were seen emergency department for a panic attack. Urine drug screen was positive for cocaine. Please from refrain from cocaine as that can worsen your anxiety. Please return if you develop any new or worsening symptoms. Use Motrin and Tylenol for pain control. Patient Language: Tamazight Prescriptions: No Action cephalexin 500 mg capsule 500 mg PO Q12H 7 Days Qty: 14 0RF Follow-up/Referrals: PHYSICIAN,PROPERTY MANAGEMENT ASSISTANT [Primary Care Provider, Internal Medicine]
--- OUTSIDE RECORDS SUMMARY | 2025-07-22 08:09 | XMS_ITS | Clinical Summary ---
Author Organization [facility] Address [address] [place] [address] Phone Care Team Providers Care Meter Reader Chief Name Role Phone Unavailable Primary Care Provider Unavailabl e Allergies No known active allergies Medications FLUoxetine (PROZAC) 10 MG CapsuleIndicatio ns:Episode of recurrent major depressive disorder, unspecified depression episode severity Take 1 capsule by mouth daily 30 Cap 07/31/2018 Active Active Problems Problem Noted Date Diagnosed Date Anxiety and depression 04/11/2016 Hyperlipidemia 10/30/2015 Immunizations Immunization Administration Dates Next Due Influenza Vaccine greater than 3 yrs 07/31/2018 Pneumococcal Vaccine Adult - 23 Valent 7 TD VACCINE 10/30/2014 Family History Medical History Relation Name Comments No Known Problems Brother Multiple Sclerosis Father Arthritis Mother No Known Problems Sister Relation Name Status Comments Brother Alive Father Mother Alive Sister Alive Social History Tobacco Use Types Packs/Day Years Used Date Smoking Tobacco: Every Day Cigarettes 0.5 31.4 Started: 03/10/1994 Smokeless Tobacco: Never Tobacco Cessation:Ready to Q uit: No; Counseling Given: Yes Alcohol Use Standard Drinks/Week Comments Yes 0 (1 standard drink = 0.6 oz pur e alcohol) Sex and Gender Information Value Date Recorded Sex Assigned at Not on file 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 Gender Identity Not on file Sexual Orientation Not on file Last Filed Vital Signs Vital Sign Reading Time Taken Comments Blood Pressure 108/72 06/05/2017 11:29 AM CDT Pulse 83 06/05/2017 11:29 AM CDT Temperature 36.3 C (97.4 F) 06/05/2017 11:29 AM CDT Respiratory Rate 18 06/05/2017 11:29 AM CDT Oxygen Saturation 98% 06/05/2017 11:29 AM CDT Inhaled Oxygen Concentration - - Weight 65.8 kg (145 lb 1.6 oz) 06/05/2017 11:29 AM CDT Height 184.2 cm (6' 0.5) 06/05/2017 11:29 AM CD T Body Mass Index 19.41 06/05/2017 11:29 AM CDT Plan of Treatment Health Maintenance Due Date Last Done Comments Hepatitis C Virus (HCV) Screening 1980 TdaP Immunization 1980 Hepatitis B Immunization (1 of 3 - 19+ 3-dose series) 1999 Human Papillomavirus (HPV) Immunization (1 - 3-dose SCDM series) 2007 SARS-COV-2 Immunization ( season) 2024 07/06/2021, 03/31/2021 Influenza Immunization (#1) 2025 07/31/2018 Respiratory Syncytial Virus (RSV) Immunization (Adult) (1 - 1-dose 75+ series) 2055 Pneumococcal Immunization Combined Aged Out 06/05/2017 No longer eligible b ased on patient's age to complete this topic Meningococcal Immunization (ACWY) Aged Out No longer eligible b ased on patient's age to complete this topic Rotavirus Immunization Aged Out No lo nger eligible based on patient's age to complete this topic Insurance MEDICAID [employer]
--- OUTSIDE RECORDS SUMMARY | 2025-07-22 08:09 | XMS_ITS | Clinical Summary ---
Author Organization [facility] Address [facility] [place] [address] Care Team Providers Care Business Account Leader Name Role Phone Unavailable Primary Care Provider Unavailabl e Social History Tobacco Use Types Packs/Day Years Used Date Smoking Tobacco: Never Assessed Sex and Gender Information Value Date Recorded Sex Assigned at Not on file Legal Sex Male 5:03 PM CDT Gender Identity Not on file Sexual Orientation Not on file Plan of Treatment Health Maintenance Due Date Last Done Comments Annual Physical 1983 Hepatitis C 1998 DTaP, Tdap and Td Vaccines ( 1 - Tdap) 1999 Hepatitis B Vaccines (1 of 3 - 19+ 3-dose series) 1999 HPV Vaccines (1 - 3-dose SCD M series) 2007 COVID-19 Vaccine (2023-2 5 season) 2025 Meningococcal B Vaccine Aged Out No l onger eligible based on patient's age to complete this topic Meningococcal Vaccine Aged Out No benita andre eligible based on patient's age to complete this topic Pneumococcal Vaccine: Pediat rics (0 to 5 Years) and At-Risk Patients (6 to 49 Years) Aged Out No longer eligible b ased on patient's age to complete this topic RSV Immunizations Under 20 Months Aged Out No longer eligible based on patient's age to complete this topic
--- OUTSIDE RECORDS SUMMARY | 2025-07-22 08:09 | XMS_ITS | Clinical Summary ---
Author Organization [facility] Address [address] [place] [address] Care Team Providers Care Manager Winter Name Role Phone Unknown, Notinfile Primary Care Provider Unavail able Allergies No known active allergies Medications senna-docusate (PERICOLACE) 8.6-50 mg Take 2 tablets by mouth 2 (two) times a day 60 tablet 07/01/2022 Active aspirin 81 mg enteric coated tablet Take 1 tablet (81 mg total) by mouth 2 (two) times a day for 14 days For blood clot prevention. Take with food. 28 tablet 07/01/2022 Active cyclobenzaprine (FLEXERIL) 10 mg tablet Take 1 tablet (10 mg total) by mouth 3 (three) times a day as needed for muscle spasms 30 tablet 07/05/2022 Active traMADoL (ULTRAM) 50 mg tablet Take 1 tablet (50 mg total) by mouth every 4 (four) hours as needed for pain for up to 10 days 28 tablet 07/25/2022 Active naproxen (NAPROSYN) 500 mg tablet TAKE 1 TABLET BY MOUTH TWICE A DAY WITH MEALS 60 tablet 08/23/2022 Active nicotine (NICODERM CQ) 21 mg 08/08/2022 Active Active Problems Problem Noted Date Diagnosed Date Other type I or II open frac ture of proximal end of right tibia, initial encounter 07/01/2022 Tibia/fibula fracture, right , open type I or II, initial encounter 06/30/2022 Overview (06/30/2022): Added automatically from request for surgery [id number] Anxiety and depression 04/11/2016 Hyperlipidemia 10/30/2015 Social History Tobacco Use Types Packs/Day Years Used Date Smoking Tobacco: Every Day Cigarettes Tobacco Cessation:Ready to Q uit: Not Asked; Counseling Given: Not Answered AUDIT-C Answer Date Recorded Q1: How often do you have a drink containing alc ohol? 2-3 times a week 07/01/2022 Q2: How many drinks containi ng alcohol do you have on a typical day when you are drinking? 3 or 4 07/01/2022 Q3: How often do you have si x or more drinks on one occasion? 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 Gender Identity Not on file Sexual Orientation Not on file Obstetrics History Last Filed Vital Signs Vital Sign Reading Time Taken Comments Blood Pressure 115/75 07/06/2022 11:10 AM CDT Pulse 98 07/06/2022 11:10 AM CDT Temperature 36.3 C (97.4 F) 07/06/2022 11:10 AM CDT Respiratory Rate 18 07/06/2022 11:10 AM CDT Oxygen Saturation 96% 07/06/2022 11:10 AM CDT Inhaled Oxygen Concentration - - Weight 65.8 kg (145 lb) 06/30/2022 9:43 PM CDT Height 185.4 cm (6' 1) 06/30/2022 9:43 PM CDT Body Mass Index 19.13 06/30/2022 9:43 PM CDT Plan of Treatment Health Maintenance Due Date Last Done Comments Hepatitis C Screening 1980 Varicella Vaccines (1 of 2 - 13+ 2-dose series) 1993 Hepatitis B Screening 1998 Regular Well Visit/Exam 18-64 1998 HPV Vaccines (1 - 3-dose SCDM series) 2007 Pneumococcal vaccine <65 (2 of 2 - PCV) 06/05/2018 0 06/05/2017 Depression Screening 06/30/2023 06/30/2022, 06/30/20 22 Covid-19 Vaccine ( season) 06/30/202504/2021, 03/31/2021 Influenza Vaccine (#1) 2025 07/31/2018 DTaP/Tdap/Td Vaccine (2 - Td or Tdap) 03/13/2032, 10/30/2014 Medical Devices Implanted Type Area Quarry Extraction Worker Device Identifier Shelf Expiration Date Model / Serial / Lot Synthes Expert 10mm 345mm Cannulated Proximal Bend Tibial Round Nail 04.034.449s - [id number] Implanted:Qty: 1 on 07/01/2022 by Ann Mustafa MD at [facility] Right: Tibia Synthes I 01/27/2031 04.034.449S / / [id number] Synthes Screw Locking Im Nail 5mm 44mm 04.045.044 - [id number] Implanted:Qty: 1 on 07/01/2022 by Ann Mustafa MD at [facility] Right: Tibia Synthes I 04.045.044 / / Synthes 5mm 8mm 50mm 2 Core Self Tap Lock Stardrive Tibial T25 Full 04.015.540 - [id number] Implanted:Qty: 1 on 07/01/2022 by Ann Mustafa MD at [facility] Right: Tibia Synthes I 04.015.540 / / Synthes 5mm 8mm 75mm 2 Core Self Tap Lock Stardrive Tibial T25 Full 04.015.565 - [id number] Implanted:Qty: 2 on 07/01/2022 by Ann Mustafa MD at [facility] Right: Tibia Synthes I 04.015.565 / / Synthes Screw Locking Im Nail 5mm 34mm 04.045.034 - [id number] Implanted:Qty: 1 on 07/01/2022 by Ann Mustafa MD at [facility] Right: Tibia Synthes I 04.045.034 / / Screw Locking Im Nail 5mm 38mm - [id number] Implanted:Qty: 1 on 07/01/2022 by Ann Mustafa MD at [facility] Right: Tibia Synthes I 04.045.038 / / Synthes Screw Locking Im Nail 5mm 30mm 04.045.030 - [id number] Implanted:Qty: 1 on 07/01/2022 by Ann Mustafa MD at [facility] Right: Tibia Synthes I .030 / / Explanted Type Area Quarry Extraction Worker Device Identifier Shelf Expiration Date Model / Serial / Lot Synthes 5mm 8mm 80mm 2 Core Self Tap Lock Stardrive Tibial T25 Full 015.570 - [id number] Explanted:Qty: 1 on 07/01/2022 by Ann Mustafa MD at [facility] Right: Tibia Synthes I 570 / / Insurance [id number] [place] [address] Advance Directives For more information, please contact: [phone] * Full Code (Latest Code Status on File) Date Activated Date Inactivated Comments 07/01/2022 3:23 PM 07/06/2022 6:29 PM Care Teams Manager Winter Relationship Specialty Start Date End Date Unknown, Notinfile PCP - General 07/01/22
--- OUTSIDE RECORDS SUMMARY | 2025-07-22 08:09 | XMS_ITS | Encounter Summary ---
Author Organization [facility] Address [address] [place] [address] Care Team Providers Care Slitter Scorer Cut Off Operator Name Role Phone Unavailable Primary Care Provider Unavailabl e Encounter Details Date Type Department Care Team (Late st Contact Info) Description 04/06/2019 Abstract SFL CONVERSION [address] [place] [address] , Generic Conversion, Social History Tobacco Use Types Packs/Day Years Used Date Smoking Tobacco: Never Assessed Sex and Gender Information Value Date Recorded Sex Assigned at Not on file Legal Sex Male 5:03 PM CDT Gender Identity Not on file Sexual Orientation Not on file documented as of this encounter Plan of Treatment Not on file documented as of this encounter Visit Diagnoses Not on filedocumented in this encounter
[2025-07-22 08:17] LABS: Fractional Inspired Oxygen 21 %; HCO3 VBG 19.1 mEq/l (24.0-30.0); PO2 VBG 28.1 mmHg (35.0-45.0)
[2025-07-22 08:21] LABS: pH VBG 7.554 (7.300-7.400)
[2025-07-22 08:22] LABS: Liters per Minute 0.0 LPM; PCO2 VBG 22.1 mmHg (42.0-48.0)
[2025-07-22 08:28] LABS: Hematocrit 46.0 % (42.0-52.0); Hemoglobin 15.7 g/dL (14.0-18.0); Immature Granulocyte Percent A 0.5 % (0-0.5); Lymphocytes Absolute Auto 1.62 K/mm3 (0.9-3.2); Mean Corpuscular HGB Conc 34.1 g/dl (32-36); Mean Corpuscular Hemoglobin 34.1 pg (26-34); Mean Corpuscular Volume 100.0 fl (80-100); Nucleated Red Blood Cells Absolute Auto 0.000 K/mm3 (0.0-0.012); Nucleated Red Blood Cells Perc 0.0 % (0.0-0.2); Platelet Count Result 453 k/mm3 (150-375); Red Blood Count 4.60 M/mm3 (4.6-6.20); White Blood Count 10.7 K/mm3 (4.5-10.0)
[2025-07-22 08:40] LABS: INR 0.9; Prothrombin Time 12.5 Seconds (11.1-14.7)
[2025-07-22 08:41] LABS: Partial Thromboplastin Time 25.5 Seconds (22.3-36.8)
[2025-07-22 08:42] LABS: Alanine Aminotransferase 33 U/L (6-50); Albumin Level 4.3 g/dL (3.5-5.1); Alkaline Phosphatase 67 U/L (38-126); Anion Gap 16 mmol/L (4-12); Aspartate Amino Transferase 36 U/L (17-59); Bilirubin,Total 0.6 mg/dL (0.2-1.3); Blood Urea Nitrogen 9 mg/dL (9-20); Calcium 9.0 mg/dL (8.4-10.2); Carbon Dioxide 22 mmol/L (22-30); Chloride 96 mmol/L (98-107); Creatine Kinase 36 U/L (55-170); Estimated CRCL calculation 101 ml/min; Estimated Glomerular Filt Rate > 60; Glucose 99 mg/dL (65-110); Lipase 277 U/L (23-300); Magnesium 1.6 mg/dL (1.6-2.3); Potassium 3.4 mmol/L (3.4-5.0); Sodium 134 mmol/L (137-145); Total Protein 7.5 g/dL (6.3-8.2)
[2025-07-22 09:12] LABS: Thyroid Stimulating Hormone Reflex 2.350 uIU/mL (0.465-4.68)
--- NOTE | 2025-07-22 09:35 | PC.NURSE ---
Pt c/o heartburn. Dr Fernandez notified with no orders received.
[2025-07-22 09:49] LABS: Add Urine Microscopic? YES; Appearance Urine Clear (Clear); Glucose Urine UA Negative (Negative); Leukocyte Esterase Ur Negative LEU/UL (Negative); Nitrate Urine Negative (Negative); Non Pathogenic Casts 0-2; Specific Grav Ur 1.030 (1.001-1.035)
[2025-07-22 10:19] LABS: Acetaminophen < 10 ug/mL (10-30)
[2025-07-22 10:31] LABS: Cannabinoid Screen Urine Positive (Negative)
== END 2025-07-22 13:16 | disposition home or self-care (01) ==
PROVIDERS: Emergency Provider Emergency Medicine
DX: F41.9 Anxiety disorder, unspecified (principal); F14.10 Cocaine abuse, uncomplicated; F12.10 Cannabis abuse, uncomplicated; M54.16 Radiculopathy, lumbar region; G56.32 Lesion of radial nerve, left upper limb; R29.0 Tetany; R94.31 Abnormal electrocardiogram [ECG] [EKG]
CPT/HCPCS: 36415; 70250; 70450; 71045; 71260; 74018; 74177; 80053; 80143; 80307; 81001; 82077; 82550; 82803; 82948; 83690; 83735; 84100; 84443; 85025; 85610; 85730; 93005; 96374; 99284; J3360; Q9967